=== PATIENT | male | born 1935 | race Caucasian/White ===

== ENCOUNTER 2019-07-16 16:01 | Observation (INO) ==
[2019-07-16] MEDS ORDERED: NORMAL SALINE 1,000 ML IV ONE (16:16)
--- NOTE | 2019-07-16 16:23 | ERNOTE ---
Medical Problem HPI - Narrative Date of Service: 07/16/19 - General Chief Complaint: Syncopal Episode Time Seen by Provider: 07/16/19 16:06 Source: patient, EMS, EMS notes reviewed Exam Limitations: no limitations - Immun/Allergies/Home Medications Immunizations: IMMUNIZATION HX Immunizations Up to Date Yes History of Influenza Vaccine Yes Hx Pneumococcal Vaccination Yes Allergies/Adverse Reactions: Allergies No Known Allergies Allergy (Unverified 07/16/19 16:16) Home Medications: HOME MEDICATIONS Acetaminophen [Tylenol] 500 mg PO BID 07/16/19 [Last Taken Unknown] Acetaminophen [Tylenol] 650 mg PO Q4H PRN 07/16/19 [Last Taken Unknown] Aspirin 325 mg PO DAILY 07/16/19 [Last Taken Unknown] Cholecalciferol (Vitamin D3) [Vitamin D] 2,000 unit PO DAILY 07/16/19 [Last Taken Unknown] Docusate Sodium [Colace] 100 mg PO DAILY 07/16/19 [Last Taken Unknown] Finasteride [Proscar] 5 mg PO DAILY 07/16/19 [Last Taken Unknown] Omeprazole 40 mg PO DAILY 07/16/19 [Last Taken Unknown] Terazosin HCl 10 mg PO DAILY 07/16/19 [Last Taken Unknown] Triamterene/Hydrochlorothiazid [Dyazide 37.5/25] 1 cap PO DAILY 07/16/19 [Last Taken Unknown] - History of Present History Narrative: patient had several syncopal episode at residential and fell and hit head Timing: intermittent Severity: moderate Modifying Factors - (Improves): Present: other - nothing Review of Systems - Narrative Narrative: patient exhibits profound weakness - Review of Systems Constitutional: Present: See HPI, weakness, fatigue, malaise EYE: Present: no symptoms reported ENT: Present: no symptoms reported Respiratory: Present: no symptoms reported Cardiology: Present: no symptoms reported Gastrointestinal/Abdominal: Present: no symptoms reported Genitourinary: Present: no symptoms reported Musculoskeletal: Present: no symptoms reported Skin: Present: no symptoms reported Neurological: Present: See HPI, weakness, other - multiple syncopal episodes Endocrine: Present: no symptoms reported Hematologic/Lymphatic: Present: no symptoms reported Psych: Present: no symptoms reported Medical History (Last Updated 07/16/19 @ 16:22 by Baylee Cheatham RN) BPH (benign prostatic hyperplasia) Urinary retention Venous embolism and thrombosis GERD (gastroesophageal reflux disease) Hypertension, essential Muscle weakness (generalized) Obesity Urine retention Surgical History: Surgical History (Last Updated 07/16/19 @ 16:23 by Baylee Cheatham RN) Surgical history unknown Family History: Family History (Last Updated 07/16/19 @ 16:22 by Baylee Cheatham RN) Other Unknown family medical history Social History: (Last Updated 07/16/19 @ 16:24 by Baylee Cheatham RN) Alcohol: alcohol intake: current Alcohol type: beer alcohol intake frequency: holiday/special occasion Physical Exam - Physical Exam General Appearance: Present: mild distress, anxious Head Exam: Present: ecchymosis, other - abraision to frontal area Eye Exam: Normal inspection: bilateral, PERRL: bilateral, EOMI: bilateral Ears, Nose, Throat: Present: normal ENT inspection, normal pharynx Neck: Present: normal inspection Respiratory: Present: no respiratory distress, normal breath sounds, no accessory muscle use, chest nontender, lungs clear Cardiovascular/Chest: Present: regular rate, rhythm, no murmur, normal peripheral pulses Gastrointestinal/Abdominal: Present: normal bowel sounds, nontender, nondistended, soft, no organomegaly Back Exam: Present: normal inspection, normal range of motion, no CVA tenderness, no vertebral tenderness Extremity Exam: Present: normal inspection, non-tender, normal range of motion, no edema Neurological Exam: Present: motor weakness Skin Exam: Present: normal color, warm/dry Lymphatic Exam: Present: no adenopathy Progress - Date and Time Seen: Date and Time: 07/16/19 18:14 patient still weak, case duscussed with dr rodriguez to admit to observation - Results and Orders Patient's Lab Results:: I have reviewed the patient's lab results. - Vital Signs Patient's Vital Signs:: I have reviewed the patient's vital signs. Vital Signs: Vital Signs 07/16/19 16:05 07/16/19 16:09 Temperature 36.2 C Pulse Rate 90 115 H Respiratory Rate 18 Blood Pressure 123/81 O2 Sat by Pulse Oximetry 94 - EKG EKG #1 EKG: RBBB - CT/Ultrasound CT/Ultrasound Narrative: ct head no acute process - Progress/Reassessment Chief Complaint: Syncopal Episode Progress:: Improved - Transfer of Care Expected Disposition: Admit Plan - Plan Plan: to [facility] to observation Departure Clinical Impression: Syncope and collapse - Departure Disposition: Short Term Hospital Inpatient Condition: Serious Referrals: Bev Torrez DO [Primary Care Provider] -
[2019-07-16 16:33] LABS: Hematocrit 44.4 % (42.0-52.0); Hemoglobin 14.9 gm/dL (13.5-18.0); Mean Cell Volume 95.5 fl (78-100); Mean Corpuscular Hgb Conc 33.6 g/dl (32-36); Mean Platelet Volume 9.2 fl (8-11.3); Neutrophil # 6.6 K/mm3 (1.3-6.0); Platelet Count 147 K/mm3 (150-450); Red Blood Count 4.65 M/mm3 (4.7-6.0); Red Cell Distribution Width 12.8 % (11.5-14.0); White Blood Count 9.2 K/mm3 (4.0-10.5)
[2019-07-16 16:50] LABS: ALT 12 U/L (19-67); AST 15 U/L (0-48); Albumin * 3.2 gm/dl (3.4-5.0); Alkaline Phosphatase * 62 U/L (50-170); Anion Gap 13.8 mmol/L (6.8-13.8); BUN/Creatinine Ratio 17.4 (9.0-21.6); Bilirubin, Total 0.4 mg/dL (0.0-1.1); Blood Urea Nitrogen 19 mg/dL (6-23); Ca. Corrected For Albumin 9.3 mg/dL (8.4-10.2); Carbon Dioxide 26.2 mmol/L (24-32.6); Chloride 103 mmol/L (97-106); Glucose * 138 mg/dL (70-110); Sodium 139 mmol/L (132-142); Total Protein 6.9 gm/dL (6.2-8.2); Troponin I Less than 0.017 ng/mL (0.00-0.10)
[2019-07-16 17:21] LABS: Urine Appearance Clear (CLEAR); Urine Bacteria None Seen; Urine Bilirubin Negative (NEGATIVE); Urine Blood Negative /ul (NEGATIVE); Urine Color Yellow; Urine Ketone Negative (NEGATIVE); Urine Nitrite Negative (NEGATIVE); Urine Protein Negative (NEGATIVE); Urine RBC None Seen /hpf (0-5); Urine Specific Gravity 1.025 SP.GR. (1.005-1.030); Urine Urobilinogen Normal (NORMAL); Urine WBC None Seen /hpf (0-5); Urine pH 6.5 pH (5.0-7.0)
[2019-07-16] MEDS: NORMAL SALINE 1,000 ML IV PRN (18:38)
[2019-07-16] MEDS ORDERED: ACETAMINOPHEN 325 MG TABLET PO PRN (21:07)
[2019-07-17] MEDS: NORMAL SALINE 1,000 ML IV PRN ×2 (02:42→10:49)
[2019-07-17] MEDS ORDERED: PANTOPRAZOLE SODIUM 40 MG TABLET.EC PO SCH (07:00)
[2019-07-17] MEDS ORDERED: FINASTERIDE 5 MG TABLET PO SCH (09:00)
[2019-07-17] MEDS ORDERED: ACETAMINOPHEN 500 MG TABLET PO SCH (09:00)
[2019-07-17] MEDS ORDERED: CHOLECALCIFEROL 1,000 UNIT CAPSULE PO SCH (09:00)
[2019-07-17] MEDS ORDERED: ASPIRIN 325 MG TABLET.DR PO SCH (09:00)
[2019-07-17] MEDS ORDERED: TRIAMTERENE/HYDROCHLOROTHIAZID 1 CAP CAPSULE PO SCH (09:00)
[2019-07-17] MEDS ORDERED: DOCUSATE SODIUM 100 MG CAPSULE PO SCH (09:00)
[2019-07-17] MEDS ORDERED: TERAZOSIN HCL 5 MG CAPSULE PO SCH (09:00)
[2019-07-17] MEDS ORDERED: TRIAMTERENE/HYDROCHLOROTHIAZID 1 TAB TABLET PO SCH (09:00)
--- NOTE | 2019-07-17 12:07 | HP ---
Chief Complaint - Chief Complaint Date of Service: 07/16/19 Time of Service: 22:45 Chief Complaint: Weakness, fall, syncope History of Present Illness: 83-year-old male with history of hypertension acid reflux presented to the ER following 2 separate episodes of 6 of syncope while at his intermediate in [place]. Patient's poor historian unsure really what happened. Currently feels well and denies dizziness, palpitations, chest pain, shortness of breath, diaphoresis or nausea/vomiting. ER work-up was fairly benign including normal CT scan of his head which showed no intracranial pathology. His vitals were normal and he was not orthostatic. Blood work showed normal white count with no shift, normal Sonam panel, negative troponin, no signs of infection in his urine. EKG showed old right bundle branch block unchanged from previous exam. Patient was for much better but due to weakness it was felt like it was best to bring him in overnight to monitor. Patient was placed under observation at that point. Medical History (Last Reviewed 07/16/19 @ 18:48 by Maldonado Matt RN) BPH (benign prostatic hyperplasia) Urinary retention Venous embolism and thrombosis GERD (gastroesophageal reflux disease) Hypertension, essential Muscle weakness (generalized) Obesity Urine retention Surgical History: Surgical History (Last Updated 07/16/19 @ 18:50 by Maldonado Matt RN) History of cholecystectomy Surgical history unknown Family History: Family History (Last Reviewed 07/16/19 @ 18:50 by Maldonado Matt RN) Other Unknown family medical history Social History: (Last Reviewed 07/16/19 @ 18:50 by Maldonado Matt RN) Alcohol: alcohol intake: current Alcohol type: beer alcohol intake frequency: holiday/special occasion Review Of Systems (GEN) - Review of Systems Generalized/Overall Review: Present: Weakness, Fatigue. Absent: Chills, Fever EENTM: Present: No Symptoms Reported Respiratory: Absent: Cough, Shortness of Breath Cardiac: Present: Syncope. Absent: Chest Pain, Palpitations Abdominal: Present: No Symptoms Reported Genitourinary: Present: No Symptoms Reported Musculoskeletal: Present: No Symptoms Reported Neurological: Present: No Symptoms Reported Skin: Present: No Symptoms Reported Endocrine: Present: No Symptoms Reported Immunizations: IMMUNIZATION HX Immunizations Up to Date Yes History of Influenza Vaccine Yes Hx Pneumococcal Vaccination Yes Allergies/Adverse Reactions: Allergies Allergy/AdvReac Type Severity Reaction Status Date / Time No Known Allergies Allergy Unverified 07/16/19 18:50 Home Medications: HOME MEDICATIONS Acetaminophen [Tylenol] 1,000 mg PO BID 07/16/19 [Last Taken Unknown] Acetaminophen [Tylenol] 650 mg PO Q4H PRN 07/16/19 [Last Taken Unknown] Aspirin 325 mg PO DAILY 07/16/19 [Last Taken Unknown] Cholecalciferol (Vitamin D3) [Vitamin D] 2,000 unit PO DAILY 07/16/19 [Last Taken Unknown] Docusate Sodium [Colace] 100 mg PO DAILY 07/16/19 [Last Taken Unknown] Finasteride [Proscar] 5 mg PO DAILY 07/16/19 [Last Taken Unknown] Omeprazole 40 mg PO DAILY 07/16/19 [Last Taken Unknown] Terazosin HCl 10 mg PO DAILY 07/16/19 [Last Taken Unknown] Triamterene/Hydrochlorothiazid [Dyazide 37.5/25] 0.5 tab PO DAILY 07/16/19 [Last Taken Unknown] Exam - Exam Vital Signs: Vital Signs - Last Taken Temp 36.8 C 07/17/19 06:55 Pulse 86 07/17/19 09:19 Resp 14 07/17/19 06:55 BP 125/74 07/17/19 09:19 Pulse Ox 93 07/17/19 06:55 Constitutional: Present: Alert, Oriented x3, No distress, Obese ENT Exam: Present: hard of hearing. Absent: nasal congestion, nasal drainage Eye Exam: bilateral eye: normal inspection, EOMI Neck: Present: non-tender, supple Back Exam: Present: normal inspection, no CVA tenderness, no vertebral tenderness Respiratory: Present: lungs clear, normal breath sounds Cardiovascular/Chest: Present: regular rate, rhythm, no murmur Abdomen: Present: Normal bowel sounds, soft, nontender /Rectal: Present: Exam deferred Skin Exam: Present: normal color, warm/dry Neurologic: Present: parts finisher II-XII nml as tested, alert, normal mood/affect, oriented x 3 Appearance: Present: appropriate appearance, appropriate insight Eye contact: Present: cooperative, good eye contact Diagnostic Studies: Abnormal Lab Results 07/16/19 07/16/19 Range/Units 16:28 16:28 RBC 4.65 L (4.7-6.0) M/mm3 MCH 32.0 H (27-31) pg Plt Count 147 L (150-450) K/mm3 Immature Gran % (Auto) 0.50 H (0.001-0.429) % Immature Gran # (Auto) 0.05 H (0.000-0.0310) K/mm3 Lymphocytes % 14.6 L (20-51) % Monocytes % 9.5 H (0.0-9) % Neutrophils # 6.6 H (1.3-6.0) K/mm3 Lymphocytes # 1.34 L (1.5-3.5) k/mm3 Random Glucose 138 H (70-110) mg/dL ALT 12 L (19-67) U/L Albumin 3.2 L (3.4-5.0) gm/dl Microbiology 07/16/19 19:21 - Final Nares MRSA Negative 07/16/19 17:14 Urine Culture - Preliminary Urine,Catheterized Ruling Out Pathogen Laboratory Results WBC 9.2 K/mm3 (4.0-10.5) 07/16/19 16:28 RBC 4.65 M/mm3 (4.7-6.0) L 07/16/19 16:28 Hgb 14.9 gm/dL (13.5-18.0) 07/16/19 16:28 Hct 44.4 % (42.0-52.0) 07/16/19 16:28 MCV 95.5 fl (78-100) 07/16/19 16:28 MCH 32.0 pg (27-31) H 07/16/19 16:28 MCHC 33.6 g/dl (32-36) 07/16/19 16:28 RDW 12.8 % (11.5-14.0) 07/16/19 16:28 Plt Count 147 K/mm3 (150-450) L 07/16/19 16:28 MPV 9.2 fl (8-11.3) 07/16/19 16:28 Immature Gran % (Auto) 0.50 % (0.001-0.429) H 07/16/19 16:28 Immature Gran # (Auto) 0.05 K/mm3 (0.000-0.0310) H 07/16/19 16:28 Neutrophils % 72.0 % (42-75.0) 07/16/19 16:28 Lymphocytes % 14.6 % (20-51) L 07/16/19 16:28 Monocytes % 9.5 % (0.0-9) H 07/16/19 16:28 Eosinophils % 2.9 % (0.0-3.0) 07/16/19 16:28 Basophils % 0.5 % (0.0-1.0) 07/16/19 16:28 Nucleated RBC % 0.0 k/mm3 (0-1) 07/16/19 16:28 Neutrophils # 6.6 K/mm3 (1.3-6.0) H 07/16/19 16:28 Lymphocytes # 1.34 k/mm3 (1.5-3.5) L 07/16/19 16:28 Monocytes # 0.9 k/mm3 (0.0-1.0) 07/16/19 16:28 Eosinophils # 0.3 k/mm3 (0.0-0.7) 07/16/19 16: Absolute Basophils 0.1 k/mm3 (0.0-0.1) 07/16/19 16:28 Sodium 139 mmol/L (132-142) 07/16/19 16:28 Plasma Sodium 140 mmol/L (130-142) 07/16/19 16:28 Potassium 4.0 mmol/L (3.4-4.6) 07/16/19 16:28 Chloride 103 mmol/L (97-106) 07/16/19 16:28 Carbon Dioxide 26.2 mmol/L (24-32.6) 07/16/19 16:28 Anion Gap 13.8 mmol/L (6.8-13.8) 07/16/19 16:28 BUN 19 mg/dL (6-23) 07/16/19 16:28 Creatinine 1.09 mg/dL (0.4-1.4) 07/16/19 16:28 Est GFR (Non-Af Amer) 69 mL/min (60-130) 07/16/19 16:28 BUN/Creatinine Ratio 17.4 (9.0-21.6) 07/16/19 16:28 Random Glucose 138 mg/dL (70-110) H 07/16/19 16:28 Calcium 9.0 mg/dL (7.9-10.9) 07/16/19 16:28 Calcium Adj for Albumin 9.3 mg/dL (8.4-10.2) 07/16/19 16:28 Total Bilirubin 0.4 mg/dL (0.0-1.1) 07/16/19 16:28 AST 15 U/L (0-48) 07/16/19 16:28 ALT 12 U/L (19-67) L 07/16/19 16:28 Alkaline Phosphatase 62 U/L (50-170) 07/16/19 16:28 Troponin I Less than 0.017 ng/mL (0.00-0.10) 07/16/19 16:28 Total Protein 6.9 gm/dL (6.2-8.2) 07/16/19 16:28 Albumin 3.2 gm/dl (3.4-5.0) L 07/16/19 16:28 Urine Color Yellow 07/16/19 17:14 Urine Appearance Clear (CLEAR) 07/16/19 17:14 Urine pH 6.5 pH (5.0-7.0) 07/16/19 17:14 Ur Specific [place] 1.025 SP.GR. (1.005-1.030) 07/16/19 17:14 Urine Protein Negative mg/dL (NEGATIVE) 07/16/19 17:14 Urine Glucose (UA) Negative mg/dL (NEGATIVE) 07/16/19 17:14 Urine Ketones Negative mg/dL (NEGATIVE) 07/16/19 17:14 Urine Blood Negative /ul (NEGATIVE) 07/16/19 17:14 Urine Nitrate Negative (NEGATIVE) 07/16/19 17:14 Urine Bilirubin Negative mg/dl (NEGATIVE) 07/16/19 17:14 Urine Urobilinogen Normal EU/dl (NORMAL) 07/16/19 17:14 Ur Leukocyte Esterase Negative /ul (NEGATIVE) 07/16/19 17:14 Urine RBC None seen /hpf (0-5) 07/16/19 17:14 Urine WBC None seen /hpf (0-5) 07/16/19 17:14 Ur Epithelial Cells None seen /hpf (0-5) 07/16/19 17:14 Urine Bacteria None seen (NONE) 07/16/19 17:14 Urine Culture Comments No culture indicated 07/16/19 17:14 Assessment/Plan - Narrative Narrative: Patient placed in observation due to weakness and 2 episodes of syncope. Patient currently asymptomatic and feeling well. Work-up is been benign here in the ER. Vital signs been stable and has been afebrile. Unsure as to the cause of his syncopal episodes and unsure of if these were really syncopal episodes versus presyncopal episodes versus just muscle weakness and deconditioning resulting in patient falling down. Patient does have weakness in his lower extremities though, no neurological symptoms. We will go ahead and order physical therapy to evaluate the patient tomorrow. We will monitor vital signs. Likely discharged home with physical therapy at his intermediate in [place]. Chronic medications restarted, SCDs for DVT prophylaxis. Nurse to call questions or concerns. - Assessment/Plan (1) History of falling Problem: Acute (2) Syncope and collapse Problem: Acute
--- NOTE | 2019-07-17 14:03 | DS ---
(1) History of falling Problem: Acute (2) Syncope and collapse Problem: Resolved Date of Discharge:: 07/17/19 Hospital Course: 83-year-old male admitted to the hospital overnight for observation following weakness and fatigue. Patient had told the ER that he had 2 syncopal episodes but he is a poor historian and was unsure if this is really what happened or if he just fell due to his weakness. Physical therapy evaluated him and recommended that he have physical therapy at his [facility] which I think would be appropriate. Today he feels well, his vital signs been stable. All of his lab work has been normal. His imaging did not show any acute pathology including a negative CT scan of his head. No changes to his current medications, discharged back to his [facility] in stable condition. Procedures Performed: none Results and Findings: Pending Mircobiology Results 07/16/19 17:14 Urine,Catheterized Urine Culture - Preliminary Ruling Out Pathogen Lab Pending Results 07/16/19 16:28: WBC 9.2, RBC 4.65 L, Hgb 14.9, Hct 44.4, MCV 95.5, MCH 32.0 H, MCHC 33.6, RDW 12.8, Plt Count 147 L, MPV 9.2, Immature Gran % (Auto) 0.50 H, Immature Gran # (Auto) 0.05 H, Neutrophils % 72.0, Lymphocytes % 14.6 L, Monocytes % 9.5 H, Eosinophils % 2.9, Basophils % 0.5, Nucleated RBC % 0.0, Neutrophils # 6.6 H, Lymphocytes # 1.34 L, Monocytes # 0.9, Eosinophils # 0.3, Absolute Basophils 0.1 07/16/19 16:28: Sodium 139, Plasma Sodium 140, Potassium 4.0, Chloride 103, Carbon Dioxide 26.2, Anion Gap 13.8, BUN 19, Creatinine 1.09, Est GFR (Non-Af Amer) 69, BUN/Creatinine Ratio 17.4, Random Glucose 138 H, Calcium 9.0, Calcium Adj for Albumin 9.3, Total Bilirubin 0.4, AST 15, ALT 12 L, Alkaline Phosphatase 62, Troponin I Less than 0.017, Total Protein 6.9, Albumin 3.2 L 07/16/19 17:14: Urine Color Yellow, Urine Appearance Clear, Urine pH 6.5, Ur Specific [place] 1.025, Urine Protein Negative, Urine Glucose (UA) Negative, Urine Ketones Negative, Urine Blood Negative, Urine Nitrate Negative, Urine Bilirubin Negative, Urine Urobilinogen Normal, Ur Leukocyte Esterase Negative, Urine RBC None seen, Urine WBC None seen, Ur Epithelial Cells None seen, Urine Bacteria None seen, Urine Culture Comments No culture indicated Discharge Location: [facility] Disposition: Intermediate Care Facility [facility] Condition: Serious Discharge Activity: Activity as tolerated Discharge Diet: General/regular food Prison Therapy: Physical Therapy Referrals: Anika Torrez MD [Primary Care Provider] - Additional Patient Instructions (free text): To [facility], please call and fax discharge orders to them. Complete Home Medications List: Complete Home Medication List: Acetaminophen [Tylenol] 1,000 mg PO BID 07/16/19 Acetaminophen [Tylenol] 650 mg PO Q4H PRN 07/16/19 Aspirin 325 mg PO DAILY 07/16/19 Cholecalciferol (Vitamin D3) [Vitamin D3] 2,000 unit PO DAILY 07/16/19 Docusate Sodium [Colace] 100 mg PO DAILY 07/16/19 Finasteride [Proscar] 5 mg PO DAILY 07/16/19 Omeprazole 40 mg PO DAILY 07/16/19 Terazosin HCl 10 mg PO DAILY 07/16/19 Triamterene/Hydrochlorothiazid [Dyazide 37.5/25] 0.5 tab PO DAILY 07/16/19
[2019-07-17 14:49] VITALS: BP 155/82
== END 2019-07-17 15:10 ==
LOC: MS 16:01 → ER 16:01 → MS 18:35
PROVIDERS: ADMIT Family Medicine; ATTEND Family Medicine
CPT/HCPCS: 36415; 70450; 71010; 71045; 72170; 80053; 81001; 84484; 85025; 87081; 87086; 93005; 97110; 97162; 99285; G0378